=== PATIENT | female | born 1970 | race Two or more races ===

== ENCOUNTER → 2017-06-11 | Day surgery (SDC) | payer OTHER ==
[2017-06-08 13:55] LABS: Basophils # (auto) 0 uL; Basophils % (auto) 0.7 % (0.0-2.0); Eosinophils # (auto) 0.1 uL; Eosinophils % (auto) 1.3 % (0.0-7.0); Hematocrit 43.4 % (36.0-46.0); Hemoglobin 14.5 g/dL (12.2-16.2); Lymphocytes # (auto) 1.4 uL; Lymphocytes % (auto) 31.5 % (10.0-50.0); Mean Corpuscular Hemoglobin 30.9 pg (28.0-32.0); Mean Corpuscular Hgb Conc. 33.4 g/dL (32.0-36.0); Mean Corpuscular Volume 92.6 fL (80.0-100.0); Monocytes # (auto) 0.3 uL; Monocytes % (auto) 6.3 % (0.0-12.0); Neutrophils # (auto) 2.6 uL; Neutrophils % (auto) 60.2 % (37.0-80.0); Nucleated Red Blood Cells % 0.1 %; Platelet Count (auto) 254 10^3/uL (140-450); Red Blood Cells 4.69 10^6/uL (4.0-5.20); Red Cell Distribution Width 13.3 % (11.8-14.3); White Blood Cell 4.4 10^3/uL (4.4-10.8)
[2017-06-08 14:11] LABS: INR 0.91 (0.9-1.15); Prothrombin Time 9.9 sec (9.37-12.3)
[~2017-06-11] VITALS: Ht 160 cm; Wt 61.7 kg
[~2017-06-11] MED LIST: CHOL20007 PO; LIDOCAINE VISCOUS 2% 15ML UD ONE; PANT40T PO; diphenhdrAMINE HCL 50 MG/1 ML VL ONE
[2017-06-11] MEDS: MIDAZOLAM HCL 5 MG/ML-1ML VIAL ONE ×2 (10:15→10:18)
[2017-06-11] MEDS: fentaNYL CITRATE 100 MCG/2 ML VL ONE ×2 (10:15→10:18)
[2017-06-11 10:55] VITALS: BP 118/70
== END | disposition home or self-care (01) ==
LOC: GI 08:53
PROVIDERS: ATTEND Internal Medicine Gastroenterology
DX: K29.50 Unspecified chronic gastritis without bleeding (principal); Z88.0 Allergy status to penicillin; E66.9 Obesity, unspecified; Z87.891 Personal history of nicotine dependence; Z90.710 Acquired absence of both cervix and uterus
CPT/HCPCS: 36415; 43239; 85025; 85610; J2250; J3010; J7030; C1769